=== PATIENT | female | born 1985 | race Caucasian/White ===

== ENCOUNTER 2017-12-29 18:42 | Emergency (ER) | payer MEDICAID ==
[~2017-12-29] VITALS: Ht 157.5 cm; Wt 62.2 kg
[~2017-12-29 18:42] MED LIST: ESOM40CA PO; IBUP-1984 PO; LEVA15HF4 IH
[2017-12-29 20:08] VITALS: BP 128/74
[2017-12-29] MEDS ORDERED: meclizine 12.5mg tablet PO ONE (20:10)
[2017-12-29] MEDS ORDERED: ondansetron 4mg rapidly disintigrating tab PO ONE (20:10)
[2017-12-29] MEDS ORDERED: MECL-111 PO (20:13)
[2017-12-29] MEDS ORDERED: ONDA4TAB9 PO (20:13)
[2017-12-29] MEDS ORDERED: PRED5TAB PO (20:18)
[2017-12-29] MEDS ORDERED: dexamethasone 4mg tablet PO ONE (20:20)
== END 2017-12-29 20:29 | disposition home or self-care (01) ==
LOC: ER 18:42
DX: L25.9 Unspecified contact dermatitis, unspecified cause (principal); R42 Dizziness and giddiness; R11.0 Nausea; J45.909 Unspecified asthma, uncomplicated; K21.9 Gastro-esophageal reflux disease without esophagitis; E11.9 Type 2 diabetes mellitus without complications; Z90.49 Acquired absence of other specified parts of digestive tract; Z88.2 Allergy status to sulfonamides; Z79.899 Other long term (current) drug therapy
CPT/HCPCS: 99284; J8540; J8597

== ENCOUNTER 2018-01-08 17:07 | Emergency (ER) | payer MEDICAID ==
[~2018-01-08] VITALS: Ht 160 cm; Wt 62.0 kg
[~2018-01-08 17:07] MED LIST changes: +MECL-111 PO; +ONDA4TAB9 PO; +PRED5TAB PO
[2018-01-08 17:09] VITALS: BP 142/103
[2018-01-08] MEDS ORDERED: triamcinolone acetonide 40mg/ml inj IM ONE (17:20)
[2018-01-08] MEDS ORDERED: PRED10TA23 PO (17:24)
== END 2018-01-08 17:40 | disposition home or self-care (01) ==
LOC: ER 17:07
DX: L23.7 Allergic contact dermatitis due to plants, except food (principal); J45.909 Unspecified asthma, uncomplicated; K21.9 Gastro-esophageal reflux disease without esophagitis; E11.9 Type 2 diabetes mellitus without complications; Z90.49 Acquired absence of other specified parts of digestive tract; Z88.2 Allergy status to sulfonamides; Z79.899 Other long term (current) drug therapy
CPT/HCPCS: 96372; 99283; J3301

== ENCOUNTER 2018-02-20 16:24 | Emergency (ER) | payer MEDICAID ==
[~2018-02-20] VITALS: Ht 160 cm; Wt 67.2 kg
[~2018-02-20 16:24] MED LIST changes: -ONDA4TAB9 PO
[2018-02-20 16:42] VITALS: BP 119/82
== END 2018-02-20 18:13 | disposition home or self-care (01) ==
LOC: ER 16:24
DX: R20.0 Anesthesia of skin (principal); K21.9 Gastro-esophageal reflux disease without esophagitis; E11.9 Type 2 diabetes mellitus without complications; J45.909 Unspecified asthma, uncomplicated; Z90.49 Acquired absence of other specified parts of digestive tract; Z88.2 Allergy status to sulfonamides; Z79.899 Other long term (current) drug therapy
CPT/HCPCS: 99281

== ENCOUNTER 2018-12-12 19:50 | Emergency (ER) | payer MEDICAID ==
[~2018-12-12] VITALS: Ht 157.5 cm; Wt 63.0 kg
[2018-12-12 20:24] VITALS: BP 110/78
[2018-12-12] MEDS ORDERED: LORA0.5T PO (22:54)
== END 2018-12-12 23:33 | disposition home or self-care (01) ==
LOC: ER 19:51
DX: F41.9 Anxiety disorder, unspecified (principal); J45.909 Unspecified asthma, uncomplicated; K21.9 Gastro-esophageal reflux disease without esophagitis; E11.9 Type 2 diabetes mellitus without complications; F17.200 Nicotine dependence, unspecified, uncomplicated; Z90.49 Acquired absence of other specified parts of digestive tract; Z88.2 Allergy status to sulfonamides; Z79.899 Other long term (current) drug therapy
CPT/HCPCS: 99283

== ENCOUNTER 2019-03-24 15:29 | Emergency (ER) | payer MEDICAID ==
[~2019-03-24] VITALS: Ht 160 cm; Wt 68.2 kg
[2019-03-24 15:47] VITALS: BP 114/78
[2019-03-24] MEDS ORDERED: NAPR-56 PO (16:14)
[2019-03-24] MEDS ORDERED: CYCL-1 PO (16:14)
[2019-03-24] MEDS ORDERED: ketorolac trometh inj. 60 MG/2 ML VIAL IM ONE (16:15)
== END 2019-03-24 16:34 | disposition home or self-care (01) ==
LOC: ER 15:29
DX: M62.830 Muscle spasm of back (principal); M54.5 Low back pain; J45.909 Unspecified asthma, uncomplicated; K21.9 Gastro-esophageal reflux disease without esophagitis; E11.9 Type 2 diabetes mellitus without complications; F10.99 Alcohol use, unspecified with unspecified alcohol-induced disorder; Z90.49 Acquired absence of other specified parts of digestive tract; Z88.2 Allergy status to sulfonamides; Z79.899 Other long term (current) drug therapy; Y90.9 Presence of alcohol in blood, level not specified
CPT/HCPCS: 96372; 99283; J1885

== ENCOUNTER 2022-08-05 19:24 | Emergency (ER) | payer MEDICAID ==
[~2022-08-05] VITALS: Ht 157.5 cm; Wt 72.7 kg
[~2022-08-05 19:24] MED LIST changes: +CYCL-1 PO; -MECL-111 PO; +MECL-159 PO
[2022-08-05 19:33] VITALS: BP 127/82
[2022-08-05 20:03] LABS: CLARITY,URINE SLIGHTLY CLOUDY (Clear); GLUCOSE, URINE NEGATIVE (Neg); KETONES,URINE TRACE mg/dl (Neg); LEUKOCYTE ESTERASE ,URINE NEGATIVE (Neg); NITRITES, URINE POSITIVE (Neg); OCCULT BLOOD,URINE MODERATE (Neg); PROTEIN,URINE TRACE mg/dl (Neg); URINE HCG NEGATIVE (NEG); UROBILINOGEN,URINE 0.2 E.U/dL (0.2-1.0)
[2022-08-05 20:11] LABS: COLOR,URINE DARK YELLOW (Yellow); UA COLLECTION TYPE CLN CATCH MIDSTREAM
[2022-08-05 20:12] LABS: BACTERIA,URINE 1+ /HPF (Neg); MUCUS STRANDS FEW /LPF (Neg); RBC,URINE 0-2 /HPF (0-2); SQUAMOUS EPITHELIAL CELL,UR MANY /LPF (FEW); WBC,URINE 0-4 /HPF (0-4)
[2022-08-05 20:54] LABS: BASOPHILS # (AUTO) 0.1 X10'3 (0-0.2); BASOPHILS % (AUTO) 0.7 % (0-1); EOSINOPHILS # (AUTO) 0.1 X10'3 (0-0.9); EOSINOPHILS % (AUTO) 0.7 % (0-6); HEMATOCRIT 40.6 % (35.0-45.0); HEMOGLOBIN 13.6 g/dl (12.0-16.0); LYMPHOCYTES # (AUTO) 1.3 X10'3 (1.1-4.8); LYMPHOCYTES % (AUTO) 13.6 % (21-51); MEAN CORPUSCULAR HEMOGLOBIN 30.1 PG (27.0-31.0); MEAN CORPUSCULAR HGB CONC 33.5 g/dL (33.0-36.5); MEAN CORPUSCULAR VOLUME 89.9 FL (78-98); MEAN PLATELET VOLUME 7.6 FL (7.4-10.4); MONOCYTES # (AUTO) 0.8 X10'3 (0-0.9); MONOCYTES % (AUTO) 8.2 % (2-12); NEUTROPHILS # (AUTO) 7.5 X10'3 (1.8-7.7); NEUTROPHILS % (AUTO) 76.8 % (42-75); PLATELET COUNT 364 X10'3 (140-440); RED BLOOD COUNT 4.52 X10'6 (4.20-5.60); RED CELL DISTRIBUTION WIDTH 15.6 % (11.5-14.5); WHITE BLOOD COUNT 9.8 X10'3 (4.5-11.0)
[2022-08-05 21:09] LABS: ALANINE AMINOTRANSFERASE 36 U/L (12-78); ALKALINE PHOSPHATASE 81 IU/L (46-116); ANION GAP 10 (8-16); ASPARTATE AMINO TRANSFERASE 37 U/L (10-37); BILIRUBIN,TOTAL 0.7 MG/DL (0.1-1.0); BLOOD UREA NITROGEN 11 MG/DL (7-18); BUN/CREATININE RATIO 11.6 (6.6-38.0); CALCIUM 9.2 MG/DL (8.5-10.1); CHLORIDE 99 MMOL/L (99-107); CREATININE 0.95 MG/DL (0.40-0.90); GLUCOSE 145 MG/DL (70-104); POTASSIUM 3.8 MMOL/L (3.5-5.1); SODIUM 134 MMOL/L (135-145); TOTAL CARBON DIOXIDE 24.7 MMOL/L (24-32); TOTAL PROTEIN 8.1 G/DL (6.4-8.2); eGFR 66 ML/MIN
[2022-08-05] MEDS ORDERED: ketorolac trometh. 30mg/ml inj. IM ONE (21:15)
[2022-08-05] MEDS ORDERED: CEPH-585 PO ×3 (21:15→21:46)
== END 2022-08-05 21:54 | disposition home or self-care (01) ==
LOC: ER 19:25
DX: N39.0 Urinary tract infection, site not specified (principal); R31.9 Hematuria, unspecified; M54.50 Low back pain, unspecified; J45.909 Unspecified asthma, uncomplicated; K21.9 Gastro-esophageal reflux disease without esophagitis; E11.9 Type 2 diabetes mellitus without complications; Z88.2 Allergy status to sulfonamides; Z98.890 Other specified postprocedural states
CPT/HCPCS: 80053; 81001; 81025; 85025; 96372; 99283; J1885